=== PATIENT | female | born 1945 | race Caucasian/White ===

== ENCOUNTER 2017-04-11 10:50 | Outpatient (CLI) | payer OTHER | END 2017-04-11 10:51 | disposition home or self-care (01) | LOC: BICMAMMO 10:50 | PROVIDERS: ATTEND Family Medicine | DX: Z12.31 Encounter for screening mammogram for malignant neoplasm of breast (principal); Z80.3 Family history of malignant neoplasm of breast | CPT/HCPCS: 77063; 77067 ==

== ENCOUNTER 2017-04-25 11:11 | Outpatient (CLI) | payer OTHER | END 2017-04-25 11:12 | disposition home or self-care (01) | LOC: BICULT 11:11 | PROVIDERS: ATTEND Family Medicine | DX: N18.9 Chronic kidney disease, unspecified (principal); D75.1 Secondary polycythemia; N28.1 Cyst of kidney, acquired; N28.89 Other specified disorders of kidney and ureter; K76.0 Fatty (change of) liver, not elsewhere classified; R74.0 Nonspecific elevation of levels of transaminase and lactic acid dehydrogenase [LDH]; R79.89 Other specified abnormal findings of blood chemistry | CPT/HCPCS: 76700 ==

== ENCOUNTER 2018-04-04 13:43 | Observation (INO) | payer MEDICARE ==
[~2018-04-04 13:43] MED LIST: ISOVUE-370 76%-LOCM 1 ML ONE
[2018-04-04 14:50] LABS: Bilirubin Negative (Negative); Blood, Urine Negative (Negative); Clarity CLEAR (Clear); Glucose, Urine (Dipstick) Negative (Negative); Leukocyte Negative (Negative); Nitrite Negative (Negative); Protein, Urine (Dipstick) Negative (Neg-Trace); Specific Gravity, Urine 1.012 (1.002-1.036)
[2018-04-04 15:00] LABS: #Eosinphils 0.1 thou/uL (0.0-0.7); #Lymphocytes 1.8 thou/uL (1.20-3.40); #Monocytes 0.4 thou/uL (0.11-0.59); #Neutrophils 3.5 thou/uL (1.40-6.50); %Basophils 0.8 % (0.0-1.0); %Eosinophils 1.7 % (0.0-10.0); %Lymphocytes 30.9 % (21.0-51.0); %Monocytes 7.1 % (0.0-10.0); %Neutrophils 59.5 % (42.0-75.0); Hemoglobin 15.1 g/dL (12.0-16.0); Mean Corpuscular HGB CONC 33.5 g/dL (32.0-36.0); Mean Corpuscular Hemoglobin 30.9 pg (27.0-31.0); Mean Corpuscular Volume 92.4 fL (78.0-98.0); Mean Platelet Volume 8.2 fL (7.4-10.4); Platelet Count 186 thou/uL (130-400); RBC Distribution Width 12.2 % (11.5-14.5); Red Blood Cell (RBC) Count 4.88 mill/uL (4.20-5.40); White Blood Cell (WBC) Count 5.9 thou/uL (4.8-10.8)
[2018-04-04 15:28] LABS: ALT (SGPT) 48 U/L (8-55); AST (SGOT) 42 U/L (5-34); Albumin 3.8 g/dL (3.4-4.8); Alkaline Phosphatase 62 U/L (40-150); Anion Gap 14 mmol/L (10-20); BUN (Urea Nitrogen) 18 mg/dL (9.8-20.1); Bilirubin, Total 0.9 mg/dL (0.2-1.2); Calc. Creatinine Clearance 0 mL/min (70-130); Calcium 9.1 mg/dL (7.8-10.44); Carbon Dioxide 23 mmol/L (23-31); Chloride 105 mmol/L (98-107); Estimated GFR-MDRD 50; Globulin 2.9 g/dL (2.4-3.5); Glucose 89 mg/dL (80-115); Potassium 3.2 mmol/L (3.5-5.1); Protein, Total 6.7 g/dL (6.0-8.3); Sodium 139 mmol/L (136-145)
--- NOTE | 2018-04-04 15:55 | CT ---
CT BRAIN NONCONTRAST: HISTORY: A 72-year-old female with altered mental status, headache, dizziness, and near syncope. FINDINGS: There is no midline shift or any other mass effect. There is no evidence of acute intracranial hemor rhage, large cortical infarct, obstructive hydrocephalus, or extraaxial fluid collection. The calvar ium is intact. IMPRESSION: No acute intracranial findings. mary [] POS: [facility]
[2018-04-04] MEDS ORDERED: Ondansetron ODT 4 MG TAB PO PRN (17:13)
[2018-04-04] MEDS ORDERED: Acetaminophen 325 MG TAB PO PRN (17:13)
[2018-04-04] MEDS ORDERED: Ondansetron PF 4 MG/2 ML Vial IVP PRN (17:13)
--- NOTE | 2018-04-04 17:38 | PDOC.FPRHP ---
- History of Present Illness Chief Complaint: pre-syncope History of Present Illness: This is a 72 yo F presenting to the ER after a reported pre-syncopal episode. The patient has a PMH significant for migraines, HTN, melanoma s/p excision, polycythemia and fibromyalgia. The patient reports that she has had a migraine every day for the past couple weeks. She states this morning she had a headache accompanies by aura, nausea, vision changes, difficulty ambulating, and altered mental state. The patient was brought in by her boyfriend after noticing she was altered and having difficulty walking. On evaluation in the ER, the patient had resolution of all symptoms except for a dull headache. Her daughter and granddaughter were at the bedside who states that the patient was at her baseline. The patient reports that this episode is very similar to her other migraines she has had in the past, but this one was worse due to the difficulty walking. The patient states that she has had accompanying nausea but no vomiting. The patient states she has never felt as if she were going to pass out or lose consciousness during these episodes. She states these episodes will only last minutes, but that the headache may last for several hours. The patient states she used to take fioricet for her headaches but has been off this medication for some time. The patient denies any history of arrhythmia. She denies SOB, chest pain, palpitations, VD, abdominal pain. Endorses weakness. - Allergies/Adverse Reactions Allergies Allergy/AdvReac Type Severity Reaction Status Date / Time No Known Drug Allergies Allergy Verified 04/04/18 19:27 - Home Medications Medication Instructions Recorded Confirmed Type Amitriptyline HCl [Elavil] 50 mg PO HS 04/04/18 04/04/18 History Aspirin [Aspirin EC] 81 mg PO DAILY 04/04/18 04/04/18 History Carvedilol [Coreg] 25 mg PO BID 04/04/18 04/04/18 History Chlorthalidone 25 mg PO DAILY 04/04/18 04/04/18 History Cholecalciferol (Vitamin D3) 5,000 unit PO DAILY 04/04/18 04/04/18 History [Vitamin D3] Chrom Deborah/Brindal Kirk [Garcinia 1 tablet PO DAILY 04/04/18 04/04/18 History Cambogia] Cyanocobalamin (Vitamin B-12) 2,500 mcg SL DAILY 04/04/18 04/04/18 History [Vitamin B-12] Losartan Potassium [Cozaar] 100 mg PO DAILY 04/04/18 04/04/18 History Zinc 50 mg PO DAILY 04/04/18 04/04/18 History cloNIDine [Catapres] 0.1 mg PO Q8HR PRN 04/04/18 04/04/18 History pyridOXINE [Vitamin B 6] 100 mg PO DAILY 04/04/18 04/04/18 History - History PMHx: HTN, melanoma, polycythemia, fibromyalgia PSHx: hysterectomy, augmentation, thyroid surgery FHx: non contributory Social: denies smoking, alcohol or drug use - Review of Systems General: denies: fever/chills, weight/appetite/sleep changes, night sweats, fatigue Eyes: reports: eye pain, vision changes ENT: denies: nasal congestion, rhinorrhea Respiratory: denies: cough, congestion, shortness of breath, exercise intolerance Cardiovascular: denies: chest pain, palpitation, edema Gastrointestinal: reports: nausea. denies: vomiting, diarrhea, constipation, abdominal pain Genitourinary: denies: dysuria Skin: denies: rashes, lesions, jaundice, itching Musculoskeletal: denies: pain, tenderness, stiffness, swelling Neurological: reports: weakness. denies: numbness, syncope, seizure - Vital signs BP: 157/92 HR: 80 RR: 20 Tmax: 97 Pox: 97% on RA Wt: 73kg - Physical Exam Constitutional: NAD, awake, alert and oriented, well developed HEENT: normocephalic and atraumatic, PERRLA, EOMI, no scleral icterus, grossly normal vision, grossly normal hearing, MMM Neck: supple, FROM Chest: no-tender to palpation, no lesions Heart: RRR, normal S1/S2, no murmurs/rubs/gallops, pulses present, no edema Lungs: CTAB, no respiratory distress, good air movement, no wheezing, no retractions Abdomen: soft, non-tender, bowel sounds present, no masses/distention Musculoskeletal: normal structure, normal tone, ROM grossly normal Neurological: no focal deficit, CN II-XII intact, normal sensation, DTRs 2+ -Neurological: strength 5/5 in right and 4/5 in L; otherwise normal exam; no TTP of temporal areas Skin: no rash/lesions -Skin: scar from prior melanoma excision on left upper back Psychiatric: normal mood and affect, good judgment and insight, intact recent and remote memory FMR H&P: Results - Labs Result Diagrams: 04/04/18 14:49 04/04/18 14:49 Lab results: WBC 5.9 thou/uL (4.8-10.8) 04/04/18 14:49 Hgb 15.1 g/dL (12.0-16.0) 04/04/18 14:49 Hct 45.1 % (36.0-47.0) 04/04/18 14:49 MCV 92.4 fL (78.0-98.0) 04/04/18 14:49 Plt Count 186 thou/uL (130-400) 04/04/18 14:49 Neutrophils % 59.5 % (42.0-75.0) 04/04/18 14:49 Sodium 139 mmol/L (136-145) 04/04/18 14:49 Potassium 3.2 mmol/L (3.5-5.1) L 04/04/18 14:49 Chloride 105 mmol/L (98-107) 04/04/18 14:49 Carbon Dioxide 23 mmol/L (23-31) 04/04/18 14:49 BUN 18 mg/dL (9.8-20.1) 04/04/18 14:49 Creatinine 1.09 mg/dL (0.6-1.1) 04/04/18 14:49 Glucose 89 mg/dL (80-115) 04/04/18 14:49 Calcium 9.1 mg/dL (7.8-10.44) 04/04/18 14:49 Total Bilirubin 0.9 mg/dL (0.2-1.2) 04/04/18 14:49 AST 42 U/L (5-34) H 04/04/18 14:49 ALT 48 U/L (8-55) 04/04/18 14:49 Alkaline Phosphatase 62 U/L (40-150) 04/04/18 14:49 Serum Total Protein 6.7 g/dL (6.0-8.3) 04/04/18 14:49 Albumin 3.8 g/dL (3.4-4.8) 04/04/18 14:49 Urine Ketones Negative mg/dL (Negative) 04/04/18 14:30 Urine Blood Negative (Negative) 04/04/18 14:30 Urine Nitrite Negative (Negative) 04/04/18 14:30 Ur Leukocyte Esterase Negative (Negative) 04/04/18 14:30 - Radiology Interpretation CT scan - head Status: report reviewed by me (neg for acute process) Other Status: report reviewed by me (CTA head/neck: no significant stenosis) FMR H&P: A/P - Problem List (1) TIA (transient ischemic attack) Current Visit: No Status: Acute Code(s): G45.9 - TRANSIENT CEREBRAL ISCHEMIC ATTACK, UNSPECIFIED (2) Migraine Current Visit: No Status: Acute Code(s): G43.909 - MIGRAINE, UNSP, NOT INTRACTABLE, WITHOUT STATUS MIGRAINOSUS (3) Hypertension Current Visit: No Status: Acute Code(s): I10 - ESSENTIAL (PRIMARY) HYPERTENSION (4) Polycythemia Current Visit: No Status: Acute Code(s): D75.1 - SECONDARY POLYCYTHEMIA (5) Fibromyalgia Current Visit: No Status: Acute (6) Melanoma Current Visit: No Status: Acute Code(s): C43.9 - MALIGNANT MELANOMA OF SKIN , UNSPECIFIED (7) Elevated AST (SGOT) Current Visit: Yes Status: Acute Code(s): R74.0 - NONSPEC ELEV OF LEVELS OF TRANSAMNS & LACTIC ACID DEHYDRGNSE (8) Hypokalemia Current Visit: Yes Status: Acute Code(s): E87.6 - HYPOKALEMIA - Plan TIA vs Complex Migraine Most likely cause of symptoms is complex migraine due to patient PMH and HPI. Patient has risk factors for TIA including HTN. - FLP pending - ESR pending to r/o temporal arteritis - CT brain neg. CTA head/neck neg for significant stenosis - Will start propranolol, d/c coreg. Can also increase amitriptyline dose if migraines persist. - PRN benadryl and reglan for nausea Mild hypokalemia - replace and recheck as necessary Elevated AST - seen in clinic, improved from 60's - could be 2/2 herbal medication, recommend stopping HTN - Will restart home meds, BP stable currently Fibromyalgia - Aware, will restart home meds Polycythemia - Aware, will monitor with labs Hx of melanoma - Aware Code: FULL Dispo: admit to stroke obs, discharge < 2 midnights Case discussed with Dr. Kimble FMR H&P: Upper Level - Pertinent history HPI: Patient is a 72yo F with no PMH of polycythemia, melanoma s/p surgical excision , hx of migraine and reported TIA 10yrs prior presents with recurrent episodes of DEMARCO, vision changes with spots in her vision, and nausea that have happened 1x /day over the last week with a worsening episode this am with associated LE weakness (L>R) that caused her to have difficulty ambulating. Pt family also reports some cognitive changes, asking questions multiple times and having difficult with memory during this time. Pt boyfriend brought her to ED and ED physician reports some slowed speech which resolved while in the ED. On my evaluation, family present and reports back to baseline in weakness and mental status. Pt reports hx of migraines with aura's that are similar in nature. She also reports TIA 10 yrs prior that was similar but was told it was a "mini stroke." She does report memory impairment and some weakness that did not resolve until years later. Pt reports DEMARCO lasts minutes to hours but lessens and remains dull for hours to days. ROS: Mentioned above. Full detail in hospital internship note. - Pertinent findings PE: General: NAD, AOx3, PERRLA, EOMI HEENT: no JVD, no LAD Cardiac: RRR, no murmurs, distal pulses 2+ Respiratory: CTAB Abd: BS+, no ttp Ext: no cyanosis or edema Neuro: strength 5/5 in UE and LE, no deficit in sensation to extremities Psych: recent and remote memory intact Pertinent Labs: K 3.2 AST 42 Imaging: CThead- no acute findings - Plan Date/Time: 04/04/18 [id number] Rosalind Schmitt have evaluated this patient and agree with findings/plan as outlined by hospital internship resident. Pertinent changes/additions are listed here. TIA vs complex migraine: DEMARCO, aura, n/v and weakness, now resolved, more consistent with complex migraine although cannot r/o TIA. Hx of TIA. - CThead negative for acute findings - r/o temporal arteritis with ESR - CTAhead/neck pending - Risk stratify with FLP. Glucose wnl on lab draw, repeat tomorrow. No hx of DM. - IV Reglan, Benadryl, and Toradol for migraine - d/c coreg and switch to 80mg Propanolol LA daily for prophylaxis Mild hypokalemia - replace and recheck Elevated AST - seen in clinic, actually improved from 60's - could be 2/2 herbal medication, recommend stopping Fibromyalgia - continue home amitriptyline Polycythemia - H/H wnl - continue outpt monitoring and f/u Hx of melanoma s/p surgical resection HLD - not currently on statin - FLP pending - with hx of TIA, should be on daily statin HTN - controlled on coreg, clorthalidone, and losartan - will d/c coreg and change to propranolol for migraine prophylaxis - home clonidine prn DVT PPx: SCD Code status: Full PCP: Dot Colin Dispo: Observe in stroke for likely less than 2 midnights. Addendum - Attending - Attending Attestation Date/Time: 04/04/182053 I personally evaluated the patient and discussed the management with Dr. Rubin and Anton. H&P repeated by me. I agree with the History, Examination, Assessment and Plan documented above with any addition or exceptions noted below. NO focal neuro deficits TIA vs complex migraines- I suspect complex migraines. Patient at baseline now. Will give NSAIDs and tylenol. CT negative and CTA neck neg as well. Will change coreg to propranolol and consider increase amitryptline dose increase for prophylaxis of migraines. ESR normal so doubt temporal arteritis.
[2018-04-04 18:02] VITALS: BMI 34.6
--- NOTE | 2018-04-04 18:33 | CT ---
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 There is a small amount of arterial c alcification at the aorta. Good flow into each carotid and vertebral system. Carotid arteries are wid jaci patent without significant stenosis. [place] of [place] is intact. No focal stenosis or aneurysm. No abnormal areas of contrast enhancement of the brain are demonstrated. IMPRESSION: Minimal arterial calcification. No significant stenosis. No significant abnormalities are demonstrate d. POS: [facility]
[2018-04-04] MEDS ORDERED: diphenhydrAMINE 50 MG/ML VIAL IVP PRN (18:56)
[2018-04-04] MEDS ORDERED: Metoclopramide HCl 10 MG/2 ML VIAL IVP PRN (18:56)
[2018-04-04] MEDS ORDERED: cloNIDine 0.1 MG TAB PO PRN (19:11)
[2018-04-04 19:15] LABS: Troponin I Less than 0.010 ng/mL (< 0.028)
[2018-04-04] MEDS ORDERED: Ketorolac Tromethamine 30 MG/ML VIAL IVP PRN (20:20)
[2018-04-04] MEDS: Amitriptyline HCl 25 MG TAB PO SCH ×2 (20:33→20:40)
[2018-04-04] MEDS ORDERED: Atorvastatin Calcium 40 MG TAB PO SCH (21:00)
[2018-04-04] MEDS ORDERED: Propranolol HCl LA 80 MG CAP PO SCH (21:00)
[2018-04-04 21:46] LABS: Troponin I Less than 0.010 ng/mL (< 0.028)
--- NOTE | 2018-04-05 05:12 | PDOC.FM ---
- Subjective Subjective: Patient reports superior and posterior headache that is dull this morning. Reports her weakness is improved. She denies n/v. Has not attempted walking yet. - Objective Vital Signs & Weight: Vital Signs (12 hours) Temp Pulse Resp BP BP Pulse Ox 04/05/18 03:20 98.0 F 81 14 126/71 93 L 04/04/18 20:45 81 16 128/63 93 L 04/04/18 18:19 98.1 F 80 16 139/69 95 Weight Weight 77.7 kg Result Diagrams: 04/05/18 05:59 04/05/18 14:03 Phys Exam - Physical Examination Constitutional: NAD HEENT: PERRLA, moist MMs Neck: no nodes, supple Respiratory: no wheezing, clear to auscultation bilateral Cardiovascular: RRR, no significant murmur Gastrointestinal: soft, non-tender Musculoskeletal: no edema, pulses present Neurological: non-focal, moves all 4 limbs strength 5/5 lower extremities bilat, strength 5/5 Upper extremities Psychiatric: normal affect Skin: no rash, normal turgor, cap refill <2 seconds Dx/Plan (1) Migraine Code(s): G43.909 - MIGRAINE, UNSP, NOT INTRACTABLE, WITHOUT STATUS MIGRAINOSUS Status: Acute (2) Elevated AST (SGOT) Code(s): R74.0 - NONSPEC ELEV OF LEVELS OF TRANSAMNS & LACTIC ACID DEHYDRGNSE Status: Acute (3) Hypokalemia Code(s): E87.6 - HYPOKALEMIA Status: Acute (4) Fibromyalgia Status: Chronic (5) Hypertension Code(s): I10 - ESSENTIAL (PRIMARY) HYPERTENSION Status: Chronic (6) Melanoma Code(s): C43.9 - MALIGNANT MELANOMA OF SKIN, UNSPECIFIED Status: Chronic (7) Polycythemia Code(s): D75.1 - SECONDARY POLYCYTHEMIA Status: Acute (8) CKD (chronic kidney disease) stage 3, GFR 30-59 ml/min Code(s): N18.3 - CHRONIC KIDNEY DISEASE, STAGE 3 (MODERATE) Status: Chronic - Plan Plan: TIA vs Complex Migraine Most likely cause of symptoms is complex migraine due to patient PMH and HPI. Patient has risk factors for TIA including HTN. - FLP - ASCVD risk of >10, started atorvastatin last night and will continue - ESR 7, no concern for temporal arteritis - CT brain neg. CTA head/neck neg for significant stenosis - Stopped Coreg and switched to propranolol 80 mg daily (for HTN and migraine ppx), will need to be increased over time to effective dose range (160 -240 mg daily) for migraine ppx - Can also increase amitriptyline dose if migraines persist. - PRN benadryl and reglan for nausea Hypokalemia - replaced this morning - recheck this afternoon Elevated AST - seen in clinic, improved from 60's - could be 2/2 sandy cordero, recommended she stop HTN - Will restart home meds, BP stable currently CKD 3A -most likely 2/2 to chronic HTN Fibromyalgia - Aware, will restart home meds Polycythemia - Aware, will monitor with labs Hx of melanoma - Aware Code: FULL Dispo: admit to stroke obs, discharge < 2 midnights, most likely home today Case discussed with Dr. Kimble Addendum - Attending - Attending Attestation Date/Time: 04/05/18 1702 I personally evaluated the patient at 1030 am and discussed the management with Dr. Koo I agree with the History, Examination, Assessment and Plan documented above with any addition or exceptions noted below. Complex migraine- headache resolved at the time of my exam. We will transition her to propranolol and have her f/u in outpatient setting in next weeks. could go up on amitryptline dose if needed. Hypokalemia- replaced and resolved.
[2018-04-05 06:29] LABS: #Basophils 0.1 thou/uL (0.0-0.2); #Eosinphils 0.1 thou/uL (0.0-0.7); #Lymphocytes 1.7 thou/uL (1.20-3.40); #Monocytes 0.4 thou/uL (0.11-0.59); #Neutrophils 2.3 thou/uL (1.40-6.50); %Basophils 1.4 % (0.0-1.0); %Eosinophils 2.1 % (0.0-10.0); %Lymphocytes 37.3 % (21.0-51.0); %Monocytes 8.6 % (0.0-10.0); %Neutrophils 50.7 % (42.0-75.0); Mean Corpuscular HGB CONC 34.3 g/dL (32.0-36.0); Mean Corpuscular Hemoglobin 31.3 pg (27.0-31.0); Mean Corpuscular Volume 91.3 fL (78.0-98.0); Mean Platelet Volume 8.3 fL (7.4-10.4); Platelet Count 176 thou/uL (130-400); RBC Distribution Width 12.3 % (11.5-14.5); Red Blood Cell (RBC) Count 4.47 mill/uL (4.20-5.40); White Blood Cell (WBC) Count 4.6 thou/uL (4.8-10.8)
[2018-04-05 06:44] LABS: ALT (SGPT) 44 U/L (8-55); AST (SGOT) 37 U/L (5-34); Albumin 3.5 g/dL (3.4-4.8); Alkaline Phosphatase 58 U/L (40-150); Anion Gap 10 mmol/L (10-20); BUN (Urea Nitrogen) 17 mg/dL (9.8-20.1); Bilirubin, Total 0.7 mg/dL (0.2-1.2); Calc. Creatinine Clearance 58 mL/min (70-130); Calcium 9.2 mg/dL (7.8-10.44); Carbon Dioxide 27 mmol/L (23-31); Chloride 105 mmol/L (98-107); Cholesterol 127 mg/dl (< 200 Desired); Estimated GFR-MDRD 49; Globulin 2.7 g/dL (2.4-3.5); Glucose 98 mg/dL (80-115); HDL Cholesterol 42 mg/dL (>60 Neg Risk); LDL Cholesterol, Calculated 71 mg/dL; Protein, Total 6.2 g/dL (6.0-8.3); Sodium 139 mmol/L (136-145); Triglycerides 68 mg/dL (Less than 150)
[2018-04-05 06:49] LABS: Potassium 2.9 mmol/L (3.5-5.1)
[2018-04-05 07:44] VITALS: TEMP 97.7
[2018-04-05] MEDS ORDERED: Potassium Chloride 20 MEQ TAB PO SCH (08:00)
[2018-04-05] MEDS ORDERED: Aspirin 81 mg Enteric Coated Tablet PO SCH (09:00)
[2018-04-05] MEDS ORDERED: Losartan 25 MG TAB PO SCH (09:00)
[2018-04-05] MEDS ORDERED: Enoxaparin Sodium 40 MG/0.4 ML SYRINGE SC SCH (09:00)
[2018-04-05] MEDS ORDERED: Propranolol HCl LA 80 MG CAP PO SCH (09:00)
[2018-04-05] MEDS ORDERED: Chlorthalidone 25 MG TAB PO SCH (09:00)
[2018-04-05] MEDS ORDERED: Cyanocobalamin (Vitamin B-12) 1,000 MCG TAB PO SCH (09:00)
[2018-04-05] MEDS ORDERED: pyridOXINE 50 MG (B6) TAB PO SCH (09:00)
[2018-04-05] MEDS ORDERED: Potassium Chloride 10 MEQ in Premix Bag 1 BAG IVPB SCH (10:45)
[2018-04-05 14:06] VITALS: BP 147/75
[2018-04-05 14:30] LABS: Anion Gap 12 mmol/L (10-20); BUN (Urea Nitrogen) 20 mg/dL (9.8-20.1); Calc. Creatinine Clearance 46 mL/min (70-130); Calcium 9.6 mg/dL (7.8-10.44); Carbon Dioxide 26 mmol/L (23-31); Chloride 104 mmol/L (98-107); Estimated GFR-MDRD 37; Glucose 106 mg/dL (80-115); Potassium 3.8 mmol/L (3.5-5.1); Sodium 138 mmol/L (136-145)
[2018-04-05] MEDS ORDERED: Prevnar 13-Val Conj/PF 0.5 ML SYRINGE IM ONE (21:00)
--- NOTE | 2018-04-07 10:12 | DIS ---
DATE OF ADMISSION: 04/04/2018 DATE OF DISCHARGE: 04/05/2018 ADMITTING ATTENDING: Izabella Kimble MD DISCHARGE ATTENDING: Izabella Kimble MD CONSULT: None. PROCEDURES: Brain CT on 04/04/2018. IMPRESSION: 1. No acute intracranial findings. 2. CT angiography on 04/04/2018, Impression: minimal arterial calcification. No significant stenosis. No significant abnormalities demonstrated. PRIMARY DIAGNOSIS: Complex migraine. SECONDARY DIAGNOSES: 1. Hypokalemia. 2. Elevated AST. 3. Hypertension. 4. Chronic kidney disease 3A. 5. Fibromyalgia. 6. Polycythemia vera. 7. History of melanoma. DISCHARGE MEDICATIONS: 1. Atorvastatin 40 mg p.o. at bedtime. 2. Propranolol 80 mg oral daily. 3. Amitriptyline 50 mg oral at bedtime. 4. Losartan potassium 100 mg oral daily. 5. Chlorthalidone 25 mg oral daily. 6. Pyridoxine 100 mg oral daily. 7. Vitamin D3 of 5000 units p.o. daily. 8. 81 mg aspirin oral daily. 9. Zinc 50 mg oral daily. 10. Vitamin B12 of 2500 mcg sublingual daily. 11. Clonidine 0.1 mg oral q.8 hours p.r.n. for hypertension. DISCONTINUED MEDICATIONS: 1. Carvedilol 25 mg oral twice daily. 2. Garcinia cambogia one tablet oral daily. HISTORY OF PRESENT ILLNESS/HOSPITAL COURSE: This is a 72-year-old female, who presented to the ER after reported presyncopal episode. The patient has a past medical history significant for migraine, hypertension, melanoma status post excision, polycythemia, and fibromyalgia. The patient reported that she has had migraine every day for the past couple of weeks. She stated that morning she had a headache accompanied by aura, nausea, vision changes, difficulty ambulating, and altered mental state. The patient was brought in by her boyfriend after noticing that she was altered and having difficulty walking. On evaluation in the ER, the patient had resolution of all symptoms except for a dull headache. Daughter and granddaughter at the bedside stated the patient was at her baseline. The patient reports this episode is very similar to other migraines that she has had in the past, but this one was the worst due to difficulty walking. The patient stated that she had some nausea, but no vomiting. She also never lost consciousness during these episodes. She states the episodes last only minutes. The headache sometimes lasted several hours. The patient denied any history of arrhythmias. CTA of the brain was negative. CTA of head and neck was negative for significant stenosis. The patient's Coreg was stopped and she was started on propranolol 80 mg daily to treat for hypertension, as well as for migraine prophylaxis. This will need to be increased over time to the effective dose range which is 160 to 240 mg daily for migraine prophylaxis. The patient was also treated with Benadryl and Reglan and her headache improved. The patient's fasting lipid panel showed ASCVD risk >10 she was started on atorvastatin 40. Her ESR was normal, which ruled out temporal arteritis as a potential cause of her headaches. Hypokalemia. The patient's potassium was monitored and replaced during her stay. The patient's discharge potassium was 3.8, but it was as low as 2.9 during the day. Take note that this may need to be further monitored outpatient. DISPOSITION: Stable. DISCHARGE INSTRUCTIONS: 1. Location: Home. 2. Diet: As tolerated. 3. Activity: As tolerated. 4. Followup: Follow up with her PCP, Dr. Dot Cordova within 1 week. Job ID: [id number] [facility]PITALJonh
== END 2018-04-05 16:41 | disposition home or self-care (01) ==
LOC: ERS 13:43 → 2SE 15:59
PROVIDERS: ADMIT Family Medicine; ATTEND Family Medicine
DX: G43.809 Other migraine, not intractable, without status migrainosus (principal); E87.6 Hypokalemia; R74.0 Nonspecific elevation of levels of transaminase and lactic acid dehydrogenase [LDH]; I12.9 Hypertensive chronic kidney disease with stage 1 through stage 4 chronic kidney disease, or unspecified chronic kidney disease; N18.3 Chronic kidney disease, stage 3 (moderate); M79.7 Fibromyalgia; D45 Polycythemia vera; R55 Syncope and collapse; Z86.73 Personal history of transient ischemic attack (TIA), and cerebral infarction without residual deficits; Z79.82 Long term (current) use of aspirin; Z79.899 Other long term (current) drug therapy
CPT/HCPCS: 51701; 70450; 70496; 70498; 80048; 80053 ×2; 80061; 81003; 84484 ×2; 85025 ×2; 85652; 93005; 96372; 96374; 96375; 97139; 99285; G0378 ×2; 36415; A4353; J1200; J1650; J1885; J2765; J3480; Q9966

== ENCOUNTER 2018-04-15 13:35 | Outpatient (CLI) | payer MEDICARE ==
--- NOTE | 2018-04-15 15:20 | BD ---
BONE DENSITOMETRY USING DEXA: Date: 04/15/18 HISTORY: Osteoporosis screening. FINDINGS: Lumbar Spine: BMD (g/cm2) L1 0.807 T-Score: -1.7 Z-Score: 0.2 L2 0.987 T-Score: -0.4 Z-Score: 1.7 L3 0.964 T-Score: -1.1 Z-Score: 1.1 L4 1.038 T-Score: -0.2 Z-Score: 2.1 L1-L4 0.960 T-Score: -0.8 Z-Score: 1.3 Left Femoral Neck: 0.571 T-Score: -2.5 Z-Score: -0.7 Total Femur: 0.918 T-Score: -0.2 Z-Score: 1.3 IMPRESSION: Based on WHO criteria, the patient's bone mineral density is considered osteoporotic. The patient is at high risk for fracture. POS: [facility]
== END 2018-04-15 13:36 | disposition home or self-care (01) ==
LOC: BICMAMMO 13:35
PROVIDERS: ATTEND Family Medicine
DX: Z13.820 Encounter for screening for osteoporosis (principal); M81.0 Age-related osteoporosis without current pathological fracture
CPT/HCPCS: 77080

== ENCOUNTER 2020-11-21 11:45 | Outpatient (CLI) | payer MEDICARE | END 2020-11-21 11:46 | disposition home or self-care (01) | LOC: BICRAD 11:45 | PROVIDERS: ATTEND Family Medicine | DX: S63.252A Unspecified dislocation of right middle finger, initial encounter (principal) ==

== ENCOUNTER 2022-12-24 16:09 | Emergency (ER) | payer MEDICARE | END 2022-12-24 17:38 | disposition home or self-care (01) | LOC: ERS 16:09 | DX: S80.12XA Contusion of left lower leg, initial encounter (principal); E78.5 Hyperlipidemia, unspecified; I10 Essential (primary) hypertension; Z79.899 Other long term (current) drug therapy; Z79.82 Long term (current) use of aspirin; W18.49XA Other slipping, tripping and stumbling without falling, initial encounter ==